=== PATIENT | female | born 1985 | race Caucasian/White ===

== ENCOUNTER 2016-07-27 09:02 | Emergency (ER) | payer SELFPAY ==
[2016-07-27] MEDS ORDERED: ACETAMINOPHEN 325 MG TABLET PO ONE (10:34)
[2016-07-27] MEDS ORDERED: BUPIVACAINE HCL 0.5 % INJ/PF 30 ML SDV INJ ONE (10:39)
--- NOTE | 2016-07-27 10:39 | ER Document Report ---
ED Oral Problem - General Chief Complaint: Toothache Stated Complaint: TOOTHACHE Notes: The patient is a 31-year-old female who presents with 1 hour of left posterior inferior tooth pain. He said she was trying to apply Orajel when the tooth broke apart and she started to have a lot of pain. She has not called the dentist. Denies fevers, difficulty swallowing, trismus, tongue elevation or throat swelling. TRAVEL OUTSIDE OF THE [place] IN LAST 30 DAYS: No - Related Data Allergies/Adverse Reactions: No Known Allergies Allergy (Unverified 07/27/16 09:13) Past Medical History - General Information source: Patient - Social History Smoking Status: Current Every Day Smoker Chew tobacco use (# tins/day): No Frequency of alcohol use: None Drug Abuse: None Family History: Reviewed & Not Pertinent Patient has suicidal ideation: No Patient has homicidal ideation: No Renal/ Medical History: Denies: Hx Peritoneal Dialysis Review of Systems - Review of Systems Notes: REVIEW OF SYSTEMS: CONSTITUTIONAL: -fevers, -chills EENT: +dental pain, -eye pain, -difficulty swallowing, -nasal congestion CARDIOVASCULAR:-chest pain, -syncope. RESPIRATORY: -cough, -SOB GASTROINTESTINAL: -abdominal pain, - nausea, -vomiting, -diarrhea GENITOURINARY: -dysuria, -hematuria MUSCULOSKELETAL: -back pain, -neck pain SKIN: -rash or skin lesions. HEMATOLOGIC: -easy bruising or bleeding. LYMPHATIC: -swollen, enlarged glands. NEUROLOGICAL: -altered mental status or loss of consciousness, -headache, - neurologic symptoms PSYCHIATRIC: -anxiety, -depression. ALL OTHER SYSTEMS REVIEWED AND NEGATIVE. Physical Exam - Vital signs Vitals: Temp 98.2, Pulse 77, RR 20, BP 149/86, Pulse Ox 96% on RA Interpretation: Normal - Notes Notes: PHYSICAL EXAMINATION: GENERAL: Well-appearing, well-nourished and in no acute distress. HEAD: Atraumatic, normocephalic. EYES: Pupils equal round and reactive to light, extraocular movements intact, sclera anicteric, conjunctiva are normal. ENT: Left posterior bottom molar with cavity and tenderness, no surrounding erythema, nares patent, oropharynx clear without exudates. Moist mucous membranes. NECK: Normal range of motion, supple without lymphadenopathy LUNGS: Breath sounds clear to auscultation bilaterally and equal. No wheezes rales or rhonchi. HEART: Regular rate and rhythm without murmurs ABDOMEN: Soft, nontender, normoactive bowel sounds. No guarding, no rebound. No masses appreciated. EXTREMITIES: Normal range of motion, no pitting or edema. No cyanosis. NEUROLOGICAL: Cranial nerves grossly intact. Normal speech, normal gait. Normal sensory, motor, and reflex exams. PSYCH: Normal mood, normal affect. SKIN: Warm, Dry, normal turgor, no rashes or lesions noted. Course - Re-evaluation Re-evalutation: No evidence of blood weeks, trismus or abscess. Provided a dental block patient 's pain resolved. Will send home with penicillin, Tylenol No. 3 and follow-up at dentist. Procedures - Laceration/Wound Repair Left Posterior Face Time completed: 11:02 Wound length (cm): 0 Wound's Depth, Shape: Other - Dental Block Anesthetic type: 0.5% Bupivacaine Volume Anesthetic (mLs): 3 Notes: procedure note available for dental block. 3 mL 0.5% bupivacaine injected into left inferior alveolar nerve with good relief of pain. No complications. Discharge - Discharge Clinical Impression: Pain, dental Condition: Stable Disposition: HOME, SELF-CARE Additional Instructions: TOOTHACHE: Your pain is due to dental decay. The tooth must be repaired in order for you to feel better. You will, therefore, be referred to a dentist. We do not have dentists on the staff at [facility]. Severe swelling or drainage around a tooth usually means a dental abscess. This also requires evaluation and treatment by the dentist, but antibiotics may be prescribed while awaiting dental treatment. You should be rechecked immediately if you develop major swelling of the face, increasing pain, a lump in the jaw or gums, headache, difficulty swallowing, or fever. ORAL NARCOTIC MEDICATION: You have been given a prescription for pain control. This medication is a narcotic. It's best taken with food, as nausea can result if taken on an empty stomach. Don't operate machinery or drive within six hours of taking this medication. Do not combine this medicine with alcohol, or with any medication which can cause sedation (such as cold tablets or sleeping pills) unless you get permission from the physician. Narcotics tend to cause constipation. If possible, drink plenty of fluids and eat a diet high in fiber and fruits. Please be aware that prescription narcotics also have the potential for abuse. People become addicted to these medications because of the general sense of wellbeing that they induce. This feeling along with a significant reduction in tension, anxiety, and aggression provides a stimulating seductive quality to these drugs. Once your pain is under control, we encourage you to discard your unused narcotics. PENICILLIN V K: You have been given a prescription for Penicillin VK. Your physician has determined that this is the best antibiotic for your condition. Pen VK can be taken with meals, however more of the antibiotic gets into the bloodstream if it's taken on an empty stomach. Penicillin usually has no side effects. However, allergy to penicillins is common. If you have had an allergic reaction to any drug of the penicillin family, you should never take any other penicillin. Notify your doctor at once if you develop hives, itching, swelling, faintness, or shortness of breath. FOLLOW-UP CARE: You have been referred for follow-up care to the dentists listed below. Call the dentists office for an appointment as you were instructed or within the next two days. If you experience worsening or a significant change in your symptoms, notify the physician immediately or return to the Emergency Department at any time for re-evaluation. [facility] [address] [place], [place] Sunday mornings, by appointment [facility] [address] [place] [address] [facility] [address] [facility] [address] [facility] ([facility]) [facility] [address] [email or web address] [address] [place] [address] Sunday- 8:00am to 5:00 pm Will see patients from other [facility]. Charges based on income and family size and accepts Medicare, Medicaid, and Insurances Will pull molars [facility] [place] [address] Hours of Operation 8:00 am - 4:30 pm weekdays The following dental offices accept Medicaid: [facility] Dr. Oro Dr. Christie Dr. Tanner Dr. Ortega Curt Vincent, Anjelica, and Moni oral surgery Dr. Hernandez ([place]) Dr. Munoz ([place]) [facility] Drs. Prado ([place]) Dr. Sharif ([place]) [facility] Dr. Park ([place]) Drs. Chisholm and ([place]) Medicaid Care Line Prescriptions: Acetaminophen with Codeine [Tylenol #3 Tablet] 1 each PO Q4HP PRN #12 tablet PRN Reason: Penicillin V Potassium [Penicillin Vk 500 mg Tablet] 500 mg PO Q8H #21 tablet
[2016-07-27 11:01] VITALS: BP 144/78
== END 2016-07-27 11:01 | disposition home or self-care (01) ==
LOC: ER 09:02
PROC: 3E0T3BZ Introduction of Anesthetic Agent into Peripheral Nerves and Plexi, Percutaneous Approach (ICD-10-PCS; principal; 2016-07-27)
DX: K02.9 Dental caries, unspecified (principal); K08.89 Other specified disorders of teeth and supporting structures; F17.200 Nicotine dependence, unspecified, uncomplicated
CPT/HCPCS: 99282

== ENCOUNTER 2017-09-20 11:31 | Emergency (ER) | payer SELFPAY ==
[2017-09-20 11:40] VITALS: BP 164/106
--- NOTE | 2017-09-20 12:12 | ER Document Report ---
HPI - HPI Patient complains to provider of: left lower tooth pain Onset: Other - 3-4 days Quality of pain: Throbbing Pain Level: 5 Context: 32 yo smoker female with filling loss 3-4 days ago, pain increased and is constant. Can't stand it anymore. NKA. No fever or swelling. Associated Symptoms: None Exacerbated by: Denies - ROS ROS below otherwise negative: Yes Systems Reviewed and Negative: Yes All other systems reviewed and negative - REPRODUCTIVE LMP: 2 weeks ago Past Medical History - General Information source: Patient - Social History Smoking Status: Current Every Day Smoker Frequency of alcohol use: None Drug Abuse: None Lives with: Family Family History: Reviewed & Not Pertinent - Medical History Medical History: Negative Renal/ Medical History: Denies: Hx Peritoneal Dialysis Surgical Hx: Negative Vertical Provider Document - CONSTITUTIONAL Agree With Documented VS: Yes Exam Limitations: No Limitations General Appearance: No Apparent Distress - INFECTION CONTROL TRAVEL OUTSIDE OF THE [place] IN LAST 30 DAYS: No - HEENT Mouth Diagram: 1 - 2/3 tooth loss with gingival inflammation and swelling - NECK Neck: Supple. negative: Lymphadenopathy-Left, Lymphadenopathy-Right - RESPIRATORY Respiratory: Breath Sounds Normal, No Respiratory Distress - CARDIOVASCULAR Cardiovascular: Regular Rate, Regular Rhythm - NEURO Level of Consciousness: Awake - DERM Integumentary: Warm, Dry Course - Vital Signs Vital signs: Temp Pulse Resp BP Pulse Ox 97.5 F 88 22 H 164/106 H 99 09/20/17 11:39 09/20/17 11:39 09/20/17 11:39 09/20/17 11:39 09/20/17 11:39 Discharge - Discharge Clinical Impression: dental painand decay Condition: Good Disposition: HOME, SELF-CARE Instructions: Acetaminophen, [facility], Dentist, Use of Over-The- Counter Ibuprofen ([facility]), Penicillin V K ([facility]), Toothache ([facility]), Warm Packs ([facility]) Additional Instructions: warm compress motrin tylenol lidocaine to numb the area see the dentist to er if worse Prescriptions: Ibuprofen [Motrin 800 mg Tablet] 800 mg PO Q8HP PRN #30 tablet PRN Reason: Penicillin V Potassium [Penicillin Vk 500 mg Tablet] 500 mg PO QID #40 tablet
[2017-09-20] MEDS ORDERED: IBUPROFEN 600 MG TABLET PO ONE (12:19)
[2017-09-20] MEDS ORDERED: LIDOCAINE 2% VISCOUS SOLN 20 ML UDCUP PO ONE (12:19)
[2017-09-20] MEDS ORDERED: PENICILLIN V POTASSIUM 500 MG TABLET PO ONE (12:19)
[2017-09-20] MEDS ORDERED: ACETAMINOPHEN 325 MG TABLET PO ONE (12:19)
[2017-09-20] MEDS ORDERED: ONDANSETRON 4 MG TAB.RAPDIS PO ONE (12:19)
[2017-09-20] MEDS ORDERED: BENZONATATE 100 MG CAPSULE PO ONE (12:20)
== END 2017-09-20 12:33 | disposition home or self-care (01) ==
LOC: ER 11:31
DX: K08.89 Other specified disorders of teeth and supporting structures (principal); K02.9 Dental caries, unspecified; K05.6 Periodontal disease, unspecified; F17.200 Nicotine dependence, unspecified, uncomplicated
CPT/HCPCS: 99282; S0119; J3490